=== PATIENT | female | born 1975 | race Two or more races ===

== ENCOUNTER 2023-10-17 02:19 | Emergency (ER) | payer MEDICAID, OTHER ==
[~2023-10-17] VITALS: Ht 167.6 cm; Wt 86.4 kg
[2023-10-17 02:46] LABS: Basophils # (auto) 0.1 10 ^3/uL (0-0.2); Eosinophils # (auto) 0.1 10 ^3/uL (0-0.8); Monocytes # (auto) 0.5 10 ^3/uL (0-1.3)
[2023-10-17 02:47] LABS: Eosinophils % (auto) 1.7 % (0.0-7.0); Hematocrit 28.6 % (36.0-46.0); Hemoglobin 8.4 g/dL (12.2-16.2); Lymphocytes # (auto) 2.2 10 ^3/uL (0.4-5.4); Lymphocytes % (auto) 40.2 % (10.0-50.0); Mean Corpuscular Hemoglobin 20.6 pg (28.0-32.0); Mean Corpuscular Hgb Conc. 29.5 g/dL (32.0-36.0); Mean Corpuscular Volume 69.8 fL (80.0-100.0); Monocytes % (auto) 9.1 % (0.0-12.0); Neutrophils # (auto) 2.6 10 ^3/uL (1.6-8.6); White Blood Cell 5.4 10^3/uL (4.4-10.8)
[2023-10-17 02:51] LABS: Red Cell Distribution Width 24.1 % (11.8-14.3)
[2023-10-17 03:01] LABS: Alanine Aminotransferase 10 U/L (7-40); Alkaline Phosphatase 116 U/L (46-116); Anion Gap 5 (5-15); Aspartate Aminotransferase 14 U/L (13-40); BUN/Creatinine Ratio 17.7 (10.0-20.0); Blood Urea Nitrogen 14 mg/dL (9-23); Calcium 9.2 mg/dL (8.7-10.4); Carbon Dioxide 23 mmol/L (20-30); Chloride 110 mmol/L (98-107); Glucose 73 mg/dL (74-106); Magnesium 1.9 mg/dL (1.6-2.6); Potassium 4.1 mmol/L (3.5-5.1); Sodium 138 mmol/L (136-145)
[2023-10-17 03:02] LABS: Bilirubin, Total 0.3 mg/dL (0.2-1.0); INR 0.93 (0.9-1.15); Partial Thromboplastin Time 26.6 SEC (24.5-34.5); Prothrombin Time 9.9 sec (9.3-11.8); Total Protein 6.8 g/dL (5.7-8.2)
[2023-10-17 03:42] LABS: Anisocytosis Moderate; Hypochromia Moderate; Platelet Estimate Adequate; Stomatocytes Few
[2023-10-17 03:55] VITALS: BP 127/62; PULSE 86; RESP 14; TEMP 98.5; O2SAT 99
[2023-10-17] MEDS: ACETAMINOPHEN 500 MG TAB PO ONE (04:02)
[2023-10-17] MEDS: ASPirin 81 mg TAB PO ONE (04:02)
[2023-10-17] MEDS ORDERED: FER325T PO (05:10)
== END 2023-10-17 06:04 | disposition left against medical advice (07) ==
LOC: ER 02:19
DX: R07.9 Chest pain, unspecified (principal); D64.9 Anemia, unspecified; Z79.899 Other long term (current) drug therapy
CPT/HCPCS: 36415; 71045; 80053; 83735; 83880; 84484; 85025; 85379; 85610; 85730; 93005